=== PATIENT | female | born 1985 | race Caucasian/White ===

== ENCOUNTER 2017-03-06 10:59 | Day surgery (SDC) | payer BC ==
--- NOTE | ~2017-03-06 | EGD ---
EGD REPORT [facility] [address] [id number] NAME: KORTNEY HWANG : [birth year] STATUS : REG [facility]#: [id number] AGE: 31 ADM/REG DATE : 03/06/17 MR#: [id number] REPORT SERV DATE: 03/06/17 DICTATED BY: XIN FRANKEL DATE: 03/06/17 REPORT STATUS : Draft [facility]ANS[facility]IBED BY: [facility] DATE: 03/06/17 Endoscopy Center Patient Name: Kortney Hwang Date of : 1985 Attending MD: XIN FRANKEL MD Procedure Date No Time: 03/06/2017 Procedure: Upper GI endoscopy Indications: Generalized abdominal pain, Diarrhea Referring MD: CESAR CASTLE MD Medicines: Monitored Anesthesia Care Complications: No immediate complications. Procedure: Pre-Anesthesia Assessment: - ASA Grade Assessment: II - A patient with mild systemic disease. After obtaining informed consent, the endoscope was passed under direct vision. Throughout the procedure, the patient's blood pressure, pulse, and oxygen saturations were monitored continuously. The GIF H190 [id number] was introduced through the mouth, and advanced to the second part of duodenum. The upper GI endoscopy was accomplished without difficulty. The patient tolerated the procedure well. Findings: The examined esophagus was normal. A single 10 mm pedunculated polyp with no stigmata of recent bleeding was found in the gastric body. Biopsies were taken with a cold forceps for histology. Patchy mildly erythematous mucosa without bleeding was found in the gastric antrum. Biopsies were taken with a cold forceps for histology. The cardia and gastric fundus were normal on retroflexion. The duodenal bulb and 2nd part of the duodenum were normal. Biopsies were taken with a cold forceps for histology. Impression: - Normal esophagus. - A single gastric polyp. Biopsied. - Erythematous mucosa in the antrum. Biopsied. - Normal duodenal bulb and 2nd part of the duodenum. Biopsied. Recommendation: - Patient has a contact number available for emergencies. The signs and symptoms of potential delayed complications were discussed with the patient. Return to normal activities tomorrow. Written discharge instructions were provided to the patient. EGD REPORT [address] [address] NAME: KORTNEY HWANG : [birth year] STATUS : REG [facility] PAT#: [id number] AGE: 31 ADM/REG DATE : 03/06/17 MR#: [id number] REPORT SERV DATE: 03/06/17 DICTATED BY: XIN FRANKEL DATE: 03/06/17 REPORT STATUS : Draft TRANSCRIBED BY: [employer] DATE: 03/06/17 - Await pathology results. Procedure Code(s): --- Professional --- 87530, Esophagogastroduodenoscopy, flexible, transoral; with biopsy, single or multiple Diagnosis Code(s): --- Professional --- K31.7, Polyp of stomach and duodenum K31.9, Disease of stomach and duodenum, unspecified R10.84, Generalized abdominal pain R19.7, Diarrhea, unspecified CPT copyright 2013 [employer]. All rights reserved. The codes documented in this report are preliminary and upon electricity trader review may be revised to meet current compliance requirements. XIN FRANKEL MD 03/06/2017 11:53 AM This report has been signed electronically. Number of Addenda: 0 Note Initiated On: 03/06/2017 11:38 AM Scope Withdrawal Time 0 hours 0 minutes 0 seconds [id number] [id number]
--- NOTE | ~2017-03-06 | EGD ---
EGD REPORT [facility] [address] [id number] NAME: KORTNEY HWANG : [birth year] STATUS : REG [facility]#: [id number] AGE: 31 ADM/REG DATE : 03/06/17 MR#: [id number] REPORT SERV DATE: 03/06/17 DICTATED BY: XIN FRANKEL DATE: 03/06/17 REPORT STATUS : Draft [facility]ANSCRIBED BY: [facility] DATE: 03/06/17 Endoscopy Center Patient Name: Kortney Hwang Date of : 1985 Attending MD: XIN FRANKEL MD Procedure Date No Time: 03/06/2017 Procedure: Colonoscopy Indications: Generalized abdominal pain, Clinically significant diarrhea of unexplained origin Referring MD: CESAR CASTLE MD Medicines: Monitored Anesthesia Care Complications: No immediate complications. Procedure: Pre-Anesthesia Assessment: - ASA Grade Assessment: II - A patient with mild systemic disease. After I obtained informed consent, the scope was passed under direct vision. Throughout the procedure, the patient's blood pressure, pulse, and oxygen saturations were monitored continuously. The PCF [id number] was introduced through the anus and advanced to the terminal ileum, with identification of the appendiceal orifice and IC valve. The colonoscopy was performed without difficulty. The patient tolerated the procedure well. The quality of the bowel preparation was adequate. Findings: The digital rectal exam was normal. Pertinent negatives include no palpable rectal lesions. The terminal ileum appeared normal. Biopsies were taken with a cold forceps for histology. The ascending colon appeared normal. Biopsies were taken with a cold forceps for evaluation of microscopic colitis. A sessile polyp was found in the ascending colon. The polyp was 7 mm in size. The polyp was removed with a cold biopsy forceps. Resection and retrieval were complete. The sigmoid colon appeared normal. Biopsies were taken with a cold forceps for evaluation of microscopic colitis. Hemorrhoids were found during retroflexion and were mild. Impression: - The examined portion of the ileum was normal. Biopsied. - The ascending colon is normal. Biopsied. - One 7 mm polyp in the ascending colon. Resected and retrieved. - The sigmoid colon is normal. Biopsied. - Hemorrhoids. EGD REPORT [address] [address] NAME: KORTNEY HWANG : [birth year] STATUS : REG [facility] PAT#: [id number] AGE: 31 ADM/REG DATE : 03/06/17 MR#: [id number] REPORT SERV DATE: 03/06/17 DICTATED BY: XIN FRANKEL DATE: 03/06/17 REPORT STATUS : Draft TRANSCRIBED BY: [employer] DATE: 03/06/17 Recommendation: - Patient has a contact number available for emergencies. The signs and symptoms of potential delayed complications were discussed with the patient. Return to normal activities tomorrow. Written discharge instructions were provided to the patient. - Regular diet. - Continue present medications. - Await pathology results. - Return to GI clinic in 4 weeks. Procedure Code(s): --- Professional --- 70597, Colonoscopy, flexible, proximal to splenic flexure; with biopsy, single or multiple Diagnosis Code(s): --- Professional --- K64.9, Unspecified hemorrhoids D12.2, Benign neoplasm of ascending colon R10.84, Generalized abdominal pain R19.7, Diarrhea, unspecified CPT copyright 2013 [employer]. All rights reserved. The codes documented in this report are preliminary and upon medical records coder review may be revised to meet current compliance requirements. XIN FRANKEL MD 03/06/2017 12:08 PM This report has been signed electronically. Number of Addenda: 0 Note Initiated On: 03/06/2017 11:35 AM Scope Withdrawal Time 0 hours 9 minutes 55 seconds
[~2017-03-06 10:59] MED LIST: ALEVE220 MG PO; BENTYL10 PO; CRESTOR20 MG PO; IMITREX100 MG PO; JUNEL F1 PO; KLOR-CON M2020 MEQ PO; LEVOTHYROXINE PO; SINGULAIR1 PO; ZANTAC150 MG PO; ZOL50 PO; [UNRECOGNIZED DRUG - CODE] OR; [UNRECOGNIZED DRUG - OTHER] PO
== END 2017-03-06 23:59 | disposition home health service (06) ==
LOC: DMU 10:59
PROVIDERS: Internal Medicine Gastroenterology
PROC: 0DBB8ZX Excision of Ileum, Via Natural or Artificial Opening Endoscopic, Diagnostic (ICD-10-PCS; 2017-03-06)
PROC: 0DBN8ZX Excision of Sigmoid Colon, Via Natural or Artificial Opening Endoscopic, Diagnostic (ICD-10-PCS; 2017-03-06)
PROC: 0DBK8ZX Excision of Ascending Colon, Via Natural or Artificial Opening Endoscopic, Diagnostic (ICD-10-PCS; 2017-03-06)
PROC: 0DB68ZX Excision of Stomach, Via Natural or Artificial Opening Endoscopic, Diagnostic (ICD-10-PCS; principal; 2017-03-06 12:30)
PROC: 0DB98ZX Excision of Duodenum, Via Natural or Artificial Opening Endoscopic, Diagnostic (ICD-10-PCS; 2017-03-06 12:30)
DX: D12.2 Benign neoplasm of ascending colon (principal); K29.80 Duodenitis without bleeding; K31.7 Polyp of stomach and duodenum; E03.9 Hypothyroidism, unspecified; K64.9 Unspecified hemorrhoids; F41.9 Anxiety disorder, unspecified; E78.00 Pure hypercholesterolemia, unspecified; F32.9 Major depressive disorder, single episode, unspecified; G43.909 Migraine, unspecified, not intractable, without status migrainosus; Z88.8 Allergy status to other drugs, medicaments and biological substances; Z79.899 Other long term (current) drug therapy; Z77.22 Contact with and (suspected) exposure to environmental tobacco smoke (acute) (chronic); Z98.890 Other specified postprocedural states
CPT/HCPCS: 84703; 88305